=== PATIENT | female | born 1940 | race Caucasian/White ===

== ENCOUNTER 2021-08-16 11:18 | Day surgery (SDC) | payer MEDICARE ==
[~2021-08-16] VITALS: Ht 162.6 cm; Wt 74.1 kg
--- NOTE | 2021-08-16 11:40 | NUR ---
pt port was accessed by RN, and to be assessed by IR .
[2021-08-16] MEDS ORDERED: normal saline 1000ml 1,000 ML IV PRN (12:00)
[2021-08-16] MEDS ORDERED: heparin sodium, porcine/PF 100unit/ml 5ML syringe ONE (13:09)
--- NOTE | 2021-08-16 13:10 | NUR ---
Angio RN at pt's bedside
--- NOTE | 2021-08-16 13:15 | NUR ---
at pt's bedside.
--- NOTE | 2021-08-16 13:25 | NUR ---
recd. SMITH order to d/c pt.
== END 2021-08-16 13:35 | disposition home or self-care (01) ==
LOC: SSTAY O 11:18
PROVIDERS: ATTEND Radiology Vascular & Interventional Radiology
DX: T82.538A Leakage of other cardiac and vascular devices and implants, initial encounter (principal); Z53.8 Procedure and treatment not carried out for other reasons; C92.00 Acute myeloblastic leukemia, not having achieved remission; Y83.8 Other surgical procedures as the cause of abnormal reaction of the patient, or of later complication, without mention of misadventure at the time of the procedure; Y92.89 Other specified places as the place of occurrence of the external cause
CPT/HCPCS: J1642